=== PATIENT | female | born 1950 | race Caucasian/White ===

== ENCOUNTER 2023-10-27 15:10 | Emergency (ER) | payer MEDICARE, OTHER, SELFPAY ==
[2023-10-27 15:18] VITALS: BP 169/75
--- NOTE | 2023-10-27 19:08 | ED.MUSCINJ ---
HPI-Injury
General
Chief Complaint: Fall
Source: patient
Exam Limitations: none
Time Seen by Provider: 10/27/23 17:55
Travel History
Have you had any contact with someone who has COVID-19?: No
Do you have any symptoms of coronavirus? Fever > 100 degrees, chills, cough, shortness of breath, sore throat, loss of taste or smell, muscle aches, or headache?: No
History of Present Illness-Injury
Initial Injury comments:
73-year-old female not anticoagulated walks with a cane on a fentanyl patch presents after mechanical fall. She complains of left hip left ankle chest pain and right knee pain. This happened yesterday. She thinks her foot got caught on the
carpet. No loss conscious no neck pain. No shortness of breath. No other complaints at this time
Past History
Past History
ED Past Medical History: None and Other (Chronic painful syndrome, arthritis); Negative Asthma, HTN, Hypercholesterolemia or NIDDM
ED Past Surgical History: None
Social History
Tobacco: Former smoker
Alcohol: None
Drug: None
Personal:
Living: alone
Family History
Family History: CAD (Father in 50s, mother in 80s)
Phy Exam
Physical Exam
Physical Exam:
General: Well-appearing female no acute respiratory distress
HEENT: Normocephalic atraumatic
Heart: Regular rate and rhythm no murmurs
Lungs: Clear to auscultation bilaterally no wheezing
Abdomen: Soft nontender nondistended no guarding or rebound normal bowel sounds
Extremities: No cyanosis or edema
Musculoskeletal: spine is nontender, left hip without deformity. right knee with abrasion anteriorly. Chest wall slightly tender anteriorly without step-off or deformity
Neurologic: Alert and oriented x 3
Injury Course
Orders/Labs/Results
Orders:
Orders
10/27/23 15:21
CXR2 [CR Chest - 2 Views ] Urgent
Comment:
Reason For Exam: injury
Knee, Right 4 or More Views [CR Knee- Right 4 Or More View*] Urgent
Comment:
Reason For Exam: fall
10/27/23 15:22
Ankle, left 3 view CR [CR Ankle - Left Min 3 Views ] Urgent
Comment:
Reason For Exam: fall
Hip, Left 2-3 Views [CR Hip - LT w/wo Pel 2-3 Vw*] Urgent
Comment:
Reason For Exam: injury
Include a pelvis x-ray?: Yes
MDM/Problems Addressed
Differential Diagnosis Includes:
Mechanical fall. Differential could include fracture versus dislocation versus contusion
X-rays of the left hip and pelvis the knee of the left ankle and chest were all obtained and reviewed personally and are negative for acute fractures suspect underlying contusions. Stable for discharge home
*Critical Care Note
Total Time (30-74mins, 75-104mins- exclusive of procedures): Not Applicable
ED Attending Note
-
Portions of this chart may have been created with voice recognition software.� Occasional wrong word or��sound alike� substitutions may have occurred due to the inherent limitations of voice recognition software.
Discharge Plan
Departure
Patient Disposition: Home (Routine Discharge)
Date of Disposition: 10/27/23
Time of Disposition: 19:12
Patient with high blood pressure during this ER visit?: No
Discharge Problem:
Contusion
Instructions: Contusion (DC)
Prescriptions:
No Action
levothyroxine 175 MCG tablet
175 mcg PO Q48H
Patient Comments:
alternating days
fentanyl 100 MCG patch 72 hour
100 mcg transdermal Q72H
levothyroxine 112 MCG tablet
115 mcg PO Q48H
Patient Comments:
alternating
oxycodone 20 MG tablet
20 mg PO .5XADAY
colchicine 0.6 MG tablet
0.6 mg PO DAILY Qty: 30 2RF
Rx Instructions:
take daily for the next three months
Referrals:
Vicki Rice MD [Family Provider] -
Activity Restrictions/Additional Instructions:
Use Tylenol if needed for pain. Ice to the sore spots. Return if worse otherwise follow-up with your family doctor
Interventions
Interventions:
ED- Fall Risk Assessment Last Done: 10/27/23 18:32
ED-Musculoskeletal Assessment Last Done: 10/27/23 18:32
ED- Neurological Assessment Last Done: 10/27/23 18:32
ED-Skin Assessment Last Done: 10/27/23 18:32
== END 2023-10-27 20:02 | disposition home or self-care (01) ==
LOC: EMR 15:10
PROVIDERS: EMERGENCY PHYSICIAN Emergency Medicine; FAMILY PHYSICIAN Emergency Medicine
DX: R07.9 Chest pain, unspecified (principal); M25.561 Pain in right knee; S70.02XA Contusion of left hip, initial encounter; S90.02XA Contusion of left ankle, initial encounter; W18.31XA Fall on same level due to stepping on an object, initial encounter
CPT/HCPCS: 99284; 71046; 73502; 73564; 73610

== ENCOUNTER 2024-06-28 14:40 | Emergency (ER) | payer MEDICARE, OTHER, SELFPAY ==
[2024-06-28 14:47] VITALS: BP 149/87
[2024-06-28 16:35] VITALS: BP 148/82
--- NOTE | 2024-06-28 18:35 | ED.GENMED ---
History of Present Illness
General
Chief Complaint: Swelling
Source: patient
Time Seen by Provider: 06/28/24 16:28
History of Present Illness
History of Present Illness:
73-year-old female with no significant past medical history presenting to the emergency department for evaluation after primary care provider sent her for DVT rule out. Patient reports over the last few days she has noticed some pain, erythema and
swelling to the distal right lower leg. Patient states she cannot think of anything that caused the symptoms. Denies any fevers, chills, rigors, chest pain, shortness of breath, traumatic injuries or any other concerns. Denies any history of
similar. Patient denies any cigarettes or tobacco use. No other concerns at present time.
Past History
Past History
ED Past Medical History: None and Other (Chronic painful syndrome, arthritis); Negative Asthma, HTN, Hypercholesterolemia or NIDDM
ED Past Surgical History: Orthopedic
Social History
Tobacco: Former smoker
Alcohol: None
Drug: None
Personal:
Living: alone
Family History
Family History: CAD (Father in 50s, mother in 80s)
Review of Systems
Review of Systems
All Other Systems: ROS reviewed and negative except as documented in HPI and ROS
Phy Exam
Physical Exam
Physical Exam:
GENERAL: Alert , in no apparent distress
EYE: conjunctiva clear
Head: Normocephalic atraumatic
NECK: Supple,
ENT: mmm.
LUNGS: no acute respiratory distress
NEUROLOGICAL: Alert and oriented
SKIN: Warm and dry, mild erythema along the distal right lower leg both anteriorly and posteriorly. Mildly warm to the touch and tender
MUSCULOSKELETAL: well perfused. Easily palpable pedal and tibial pulses. 1+ pitting edema to the ankle along the right lower leg. Sensation grossly intact to light touch throughout
PSYCH: Normal and appropriate interaction.
Scores
Heart Failure Risk
Heart Failure Risk Score: Not Applicable
Heart Score for Chest Pain Patients
STEMI patient?: Not applicable
Withdrawal Assessment of Alcohol
Withdrawal Assessment Completed?: Not applicable
Course
Orders/Labs/Results
Orders:
Orders
06/28/24 16:28
US Periph Venous LOWER Ext RT Urgent
Comment:
Reason For Exam: edema, pain
Vital Signs
Initial and Last Documented VS:
Initial Vital Signs
Temp Pulse Resp BP Pulse Ox
98.3 F 71 16 149/87 98
06/28/24 14:47 06/28/24 14:47 06/28/24 14:47 06/28/24 14:47 06/28/24 14:47
Last Documented Vital Signs
Temp Pulse Resp BP Pulse Ox
98.3 F 79 18 143/77 97
06/28/24 14:47 06/28/24 18:49 06/28/24 18:49 06/28/24 18:49 06/28/24 18:49
MDM/Problems Addressed
Differential Diagnosis Includes:
Cellulitis, peripheral vascular disease, peripheral arterial disease, DVT, arthritis
MDM/Problems Addressed:
73-year-old female presenting to the ER at request of primary care provider for DVT rule out. Patient with a couple of days of erythema edema and pain. Will order ultrasound to rule out DVT. If negative will consider antibiotic for possible
cellulitis. Patient in agreement with treatment plan.
*Radiology
Radiology exam reviewed: radiology read reviewed
*Pulse Oximetry
Patient hypoxic: no
*Critical Care Note
Total Time (30-74mins, 75-104mins- exclusive of procedures): Not Applicable
Patient Management
Discussion with other providers: PCP
Escalation/DeEscalation of care consider admission/obs:
Patient's ultrasound negative for DVT. Will initiate Keflex for possible cellulitis. I notified patient's primary care provider who is aware and will follow-up with the patient this coming week.
ED Attending Note
-
Portions of this chart may have been created with voice recognition software.� Occasional wrong word or��sound alike� substitutions may have occurred due to the inherent limitations of voice recognition software.
Discharge Plan
Departure
Patient Disposition: Home (Routine Discharge)
Date of Disposition: 06/28/24
Time of Disposition: 18:47
Patient with high blood pressure during this ER visit?: Yes
Discharge Problem:
Edema of right lower extremity
Instructions: Cellulitis (Skin Infection), Adult ED
Prescriptions:
New
cephalexin 500 mg tablet
500 mg PO BID 7 Days Qty: 14 0RF
No Action
levothyroxine 175 MCG tablet
175 mcg PO Q48H
Patient Comments:
alternating days
fentanyl 100 MCG patch 72 hour
100 mcg transdermal Q72H
levothyroxine 112 MCG tablet
115 mcg PO Q48H
Patient Comments:
alternating
oxycodone 20 MG tablet
20 mg PO .5XADAY
colchicine 0.6 MG tablet
0.6 mg PO DAILY Qty: 30 2RF
Rx Instructions:
take daily for the next three months
Referrals:
Vicki Rice MD [Family Provider] -
Interventions
Interventions:
*Risk Screen - Suicide Last Done: 06/28/24 14:49
*General Assessment Last Done: 06/28/24 16:38
*Neglect/Abuse Screening Last Done: 06/28/24 14:49
ED- Fall Risk Assessment Last Done: 06/28/24 18:51
*ED COVID-19 Vaccine History Last Done: 06/28/24 16:38
*Nursing Disposition Last Done: 06/28/24 18:51
ED- Cardiac Assessment Last Done: 06/28/24 16:38
ED- Pulmonary Assessment Last Done: 06/28/24 16:38
ED-Skin Assessment Last Done: 06/28/24 16:38
Discharge Date and Time
Discharge Date/Time: 06/28/24 18:52
Print Language: VINCENTIAN
[2024-06-28 18:49] VITALS: BP 143/77
== END 2024-06-28 18:52 | disposition home or self-care (01) ==
LOC: EMR 14:40
PROVIDERS: EMERGENCY PHYSICIAN Student in an Organized Health Care Education/Training Program; FAMILY PHYSICIAN Emergency Medicine
DX: R60.0 Localized edema (principal); M79.661 Pain in right lower leg; L53.9 Erythematous condition, unspecified; M19.90 Unspecified osteoarthritis, unspecified site; Z87.891 Personal history of nicotine dependence; Z88.1 Allergy status to other antibiotic agents; Z88.2 Allergy status to sulfonamides
CPT/HCPCS: 99284; 93971

== ENCOUNTER → 2024-07-15 12:57 | Outpatient (REF) | payer MEDICARE, OTHER, SELFPAY | LOC: RAD 12:57 | PROVIDERS: ATTENDING PHYSICIAN Emergency Medicine | DX: M79.89 Other specified soft tissue disorders (principal); I87.2 Venous insufficiency (chronic) (peripheral) | CPT/HCPCS: 93971 ==

== ENCOUNTER 2024-11-08 12:36 | Emergency (ER) | payer MEDICARE, OTHER, SELFPAY ==
[2024-11-08 12:42] VITALS: BP 154/79
--- NOTE | 2024-11-08 13:02 | ED.GENMED ---
History of Present Illness
General
Chief Complaint: Fall
Source: patient
Exam Limitations: none
Time Seen by Provider: 11/08/24 13:02
Nursing documentation reviewed up to this point in time: agreed with
History of Present Illness
History of Present Illness:
This is a 74-year-old female with a past medical history of chronic pain on daily oxycodone and fentanyl patches, chronic back pain status post spinal fusions, presents emergency department today with concerns of midline back pain following a fall.
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 Patient states that
she slipped and she lost hold of the back car door and she fell back, with the edge of the curb hitting the middle of her back and the back of her head hitting the pavement. Patient did not lose consciousness. She denies headache currently, denies
any neck pain, denies any weakness or numbness or tingling of her extremities, denies any nausea or vomiting. She denies any dysuria. Patient states that after that, she saw her client walking in the street who helped her up and she subsequently
went home. Patient states that when she woke up this morning, she noticed the pain was still there and went to get checked out to make sure nothing was broken since patient does have surgical hardware within her back. She follows with Dr. Boston
from [facility]. She denies any fevers or chills, new urinary or fecal incontinence, inability to ambulate.
Past History
Past History
ED Past Medical History: None and Other (Chronic painful syndrome, arthritis); Negative Asthma, HTN, Hypercholesterolemia or NIDDM
ED Past Surgical History: Orthopedic
Social History
Tobacco: Former smoker
Alcohol: None
Drug: None
Personal:
Living: alone
Family History
Family History: CAD (Father in 50s, mother in 80s)
Review of Systems
Review of Systems
All Other Systems: ROS reviewed and negative except as documented in HPI and ROS
Phy Exam
Physical Exam
Physical Exam:
General: Patient is well appearing and in no acute distress; non-toxic
Skin: Warm and dry, no rashes or lesions
Head: Normocephalic, atraumatic
Eyes: Sclera non-icteric. EOMs intact.
Neck: No tenderness to palpation of the cervical spine
Cardiac: Regular rate and rhythm, no murmurs, no tenderness to palpation of the external chest wall
Peripheral Vascular: No lower extremity swelling or edema
Pulm: Normal respiratory effort, no wheezes, rales, or rhonchi
Abdomen: No abdominal tenderness to palpation
Musculoskeletal: Midline thoracic and lumbar spinal tenderness, pain worse with back flexion. No pain with internal and external rotation of hips bilaterally.
Neuro: CN II-XII intact, no focal neurologic deficits.
Psychiatric: Appropriate mood and affect.
Course
Orders/Labs/Results
Orders:
Orders
11/08/24 13:43
CT Head W/o Iv Contrast Urgent
Comment:
Reason For Exam: mild posterior headache following fall
11/08/24 13:44
CR Lumbar Spine 2 Or 3 Views Urgent
Comment:
Reason For Exam: lower back pain following fall
CR Thoracic Spine 3 Views Urgent
Comment:
Reason For Exam: midline back pain following fall
Vital Signs
Initial and Last Documented VS:
Initial Vital Signs
Temp Pulse Resp BP Pulse Ox
98.3 F 87 16 154/79 98
11/08/24 12:42 11/08/24 12:42 11/08/24 12:42 11/08/24 12:42 11/08/24 12:42
Last Documented Vital Signs
Temp Pulse Resp BP Pulse Ox
98.3 F 79 20 137/77 99
11/08/24 12:42 11/08/24 16:00 11/08/24 16:00 11/08/24 16:00 11/08/24 16:00
MDM/Problems Addressed
Differential Diagnosis Includes:
ddx include lumbar compression fracture, muscle sprain/strain, epidural hematoma, subdural hematoma
MDM/Problems Addressed:
This is a 74-year-old female with a past medical history of chronic pain on daily oxycodone and fentanyl patches, chronic back pain status post spinal fusions, presents emergency department today with concerns of midline back pain following a fall.
She is able to ambulate without difficulty with her walker and her pain is well controlled with her daily pain control regimen of oxycodone and fentanyl but patient is concerned she may have a fracture or her hardware may be out of place. X-rays
negative for acute fracture, CT scan negative for bleeding, patient stable for discharge.
Chronic conditions affecting care:
chronic back pain
*Pulse Oximetry
Patient hypoxic: no
*Critical Care Note
Total Time (30-74mins, 75-104mins- exclusive of procedures): Not Applicable
Data Reviewed
Review of Other/Old Records Reveals: Records (reviewed ER physician documentation from 06/28/24, no previous ER discharge summary to review)
Patient Management
Escalation/DeEscalation of care consider admission/obs:
pt stable for discharge
reviewed case with my attending
ED Attending Note
-
Portions of this chart may have been created with voice recognition software.� Occasional wrong word or��sound alike� substitutions may have occurred due to the inherent limitations of voice recognition software.
Discharge Plan
Departure
Patient Disposition: Home (Routine Discharge)
Date of Disposition: 11/08/24
Time of Disposition: 16:38
Patient with high blood pressure during this ER visit?: Yes
Condition: Good
Discharge Problem:
Back pain, Fall
Instructions: Preventing falls in adults, Back Pain, BLOOD PRESSURE
Prescriptions:
No Action
levothyroxine 175 MCG tablet
175 mcg PO Q48H
Patient Comments:
alternating days
fentanyl 100 MCG patch 72 hour
100 mcg transdermal Q72H
levothyroxine 112 MCG tablet
115 mcg PO Q48H
Patient Comments:
alternating
oxycodone 20 MG tablet
20 mg PO .5XADAY
colchicine 0.6 MG tablet
0.6 mg PO DAILY Qty: 30 2RF
Rx Instructions:
take daily for the next three months
cephalexin 500 mg tablet
500 mg PO BID 7 Days Qty: 14 0RF
Referrals:
Vicki Rice MD [Family Provider] -
Activity Restrictions/Additional Instructions:
Your x-rays demonstrated no fracture within the back. Your CT scan of the head was normal.
Please follow up with your pain management doctor and your primary care provider.
Please return to the emergency department should you develop genital paresthesias, fecal incontinence, inability to ambulate, fevers or chills, chest pain or shortness of breath, or any other signs or symptoms worrisome to you.
Interventions
Interventions:
*Risk Screen - Suicide Last Done: 11/08/24 12:42
*General Assessment Last Done: 11/08/24 14:00
*Neglect/Abuse Screening Last Done: 11/08/24 12:42
*ED COVID-19 Vaccine History Last Done: 11/08/24 14:00
*Nursing Disposition Last Done: 11/08/24 17:08
ED-Musculoskeletal Assessment Last Done: 11/08/24 14:00
ED- Neurological Assessment Last Done: 11/08/24 14:00
ED-Skin Assessment Last Done: 11/08/24 14:00
Discharge Date and Time
Discharge Date/Time: 11/08/24 17:09
Print Language: FAROESE
[2024-11-08 16:00] VITALS: BP 137/77
== END 2024-11-08 17:09 | disposition home or self-care (01) ==
LOC: EMR 12:36
PROVIDERS: EMERGENCY PHYSICIAN Emergency Medicine; FAMILY PHYSICIAN Emergency Medicine
DX: M54.9 Dorsalgia, unspecified (principal); W01.0XXA Fall on same level from slipping, tripping and stumbling without subsequent striking against object, initial encounter; R03.0 Elevated blood-pressure reading, without diagnosis of hypertension; Z87.891 Personal history of nicotine dependence
CPT/HCPCS: 99284; 70450; 72072; 72100

== ENCOUNTER → 2025-07-11 13:36 | Outpatient (REF) | payer MEDICARE, OTHER, SELFPAY ==
[2025-07-11 14:37] LABS: Hematocrit 38.9 % (37.0-47.0); Hemoglobin 12.7 g/dL (12.0-16.0); Mean Corp Hgb Conc. 32.6 g/dL (33.0-37.0); Mean Corpuscular Volume 96.5 fL (81.0-99.0); Nucleated Red Blood Cells % 0 %; Platelet Count 280 10^3/uL (130-400); Red Cell Dist. Width 13.2 % (11.5-14.5)
[2025-07-11 15:13] LABS: ALT (SGPT) 20 U/L (0-35); AST (SGOT) 22 U/L (14-36); Albumin 4.7 g/dl (3.5-5.0); Alkaline Phosphatase 99 U/L (38-126); Blood Urea Nitrogen 19 mg/dl (7-17); Calcium 9.6 mg/dl (8.4-10.2); Carbon Dioxide 34 mmol/L (22-30); Chloride 100 mmol/L (98-107); Glucose 83 mg/dl (70-99); Potassium 4.2 mmol/L (3.5-5.1); Sodium 140 mmol/L (135-145); Total Protein 7.8 g/dl (6.3-8.2); Uric Acid 2.9 mg/dl (2.5-6.2); eGFR > 60.00
[2025-07-11 15:16] LABS: C-Reactive Protein 10.30 mg/L (0.0-10.00)
[2025-07-11 15:50] LABS: Hepatitis B Surface Antigen Negative (Negative)
[2025-07-11 16:07] LABS: Hepatitis C Antibody Negative (Negative)
== END ==
LOC: RAD 13:36
PROVIDERS: ATTENDING PHYSICIAN Student in an Organized Health Care Education/Training Program; FAMILY PHYSICIAN Nurse Practitioner Family; REFERRING PHYSICIAN Specialist
DX: E55.9 Vitamin D deficiency, unspecified (principal); E83.10 Disorder of iron metabolism, unspecified; G89.29 Other chronic pain; M06.4 Inflammatory polyarthropathy; M12.80 Other specific arthropathies, not elsewhere classified, unspecified site; M25.40 Effusion, unspecified joint; M25.462 Effusion, left knee; M25.50 Pain in unspecified joint; M25.512 Pain in left shoulder; M25.561 Pain in right knee; M25.562 Pain in left knee; M54.2 Cervicalgia; M79.641 Pain in right hand; M79.642 Pain in left hand; R70.0 Elevated erythrocyte sedimentation rate; Z11.1 Encounter for screening for respiratory tuberculosis; Z11.4 Encounter for screening for human immunodeficiency virus [HIV]; Z11.59 Encounter for screening for other viral diseases
CPT/HCPCS: 73030; 73120; 73565; 80053; 82784; 83521; 84155; 84165; 84550; 85025; 85652; 86038; 86140; 86160; 86200; 86334; 86430; 86704; 86803; 87340; 87389

== ENCOUNTER → 2025-07-18 10:57 | Outpatient (REF) | payer MEDICARE, OTHER, SELFPAY | LOC: REG 10:57 | PROVIDERS: ATTENDING PHYSICIAN Student in an Organized Health Care Education/Training Program; FAMILY PHYSICIAN Nurse Practitioner Family; OTHER PHYSICIAN Specialist | DX: E55.9 Vitamin D deficiency, unspecified (principal); Z11.59 Encounter for screening for other viral diseases; Z11.1 Encounter for screening for respiratory tuberculosis; R70.0 Elevated erythrocyte sedimentation rate; Z11.4 Encounter for screening for human immunodeficiency virus [HIV] | CPT/HCPCS: 36415; 86480 ==

== ENCOUNTER → 2025-08-25 14:48 | Outpatient (REF) | payer MEDICARE, OTHER, SELFPAY ==
[2025-08-25 16:36] LABS: Hematocrit 37.7 % (37.0-47.0); Hemoglobin 12.0 g/dL (12.0-16.0); Mean Corp Hgb Conc. 31.8 g/dL (33.0-37.0); Mean Corpuscular Volume 99.7 fL (81.0-99.0); Nucleated Red Blood Cells % 0 %; Platelet Count 296 10^3/uL (130-400); Red Cell Dist. Width 13.5 % (11.5-14.5)
[2025-08-25 16:46] LABS: ALT (SGPT) 33 U/L (0-35); AST (SGOT) 29 U/L (14-36); Albumin 4.3 g/dl (3.5-5.0); Alkaline Phosphatase 86 U/L (38-126); Blood Urea Nitrogen 20 mg/dl (7-17); Calcium 9.3 mg/dl (8.4-10.2); Carbon Dioxide 33 mmol/L (22-30); Chloride 100 mmol/L (98-107); Glucose 79 mg/dl (70-99); Potassium 4.0 mmol/L (3.5-5.1); Sodium 136 mmol/L (135-145); Total Protein 7.2 g/dl (6.3-8.2); eGFR > 60.00
[2025-08-25 16:47] LABS: C-Reactive Protein 9.80 mg/L (0.0-10.00)
[2025-08-25 17:05] LABS: Vitamin D, 25-OH*** 38.3 ng/mL (30-80)
[2025-08-25 17:18] LABS: TSH 2.09 uIU/ml (0.47-4.68)
[2025-08-25 17:23] LABS: Ferritin 30.7 ng/ml (11.1-264.0)
[2025-08-26 10:06] LABS: Glycohemoglobin (HgbA1c) 5.4 % (4.0-5.9)
== END ==
LOC: REG 14:48
PROVIDERS: ATTENDING PHYSICIAN Student in an Organized Health Care Education/Training Program; FAMILY PHYSICIAN Nurse Practitioner Family
DX: E55.9 Vitamin D deficiency, unspecified (principal); E83.10 Disorder of iron metabolism, unspecified; G89.29 Other chronic pain; M06.4 Inflammatory polyarthropathy; M12.80 Other specific arthropathies, not elsewhere classified, unspecified site; M25.40 Effusion, unspecified joint; M25.462 Effusion, left knee; M25.50 Pain in unspecified joint; M25.512 Pain in left shoulder; M25.561 Pain in right knee; M54.2 Cervicalgia; M79.641 Pain in right hand; M79.642 Pain in left hand; R70.0 Elevated erythrocyte sedimentation rate; Z11.1 Encounter for screening for respiratory tuberculosis; Z11.4 Encounter for screening for human immunodeficiency virus [HIV]; Z11.59 Encounter for screening for other viral diseases; L65.9 Nonscarring hair loss, unspecified; Z13.220 Encounter for screening for lipoid disorders; E03.9 Hypothyroidism, unspecified; R73.03 Prediabetes
CPT/HCPCS: 36415; 80053; 82306; 82728; 83036; 84439; 84443; 85025; 85652; 86140